=== PATIENT | female | born 1985 | race Caucasian/White ===

== ENCOUNTER 2016-02-09 18:29 | Emergency (ER) | payer OTHER ==
--- NOTE | 2016-02-09 20:08 | ED CLINICAL REPORT ---
Clinical Report - Physicians/Mid Levels Formerly [facility] [address] [place] [address] 02/09/2016 18:29 Patient: SACHIN VAZQUEZ Time Seen: 19:54; initial patient contact, initial documentation, patient care assumed. Arrived- By private vehicle. Historian- patient. HISTORY OF PRESENT ILLNESS Chief Complaint: COUGH, SORE THROAT, SINUS PAIN and FEVER. This started about 2 1/2 weeks ago and is still present. The illness is described as moderate. The patient has had a mild cough productive of sputum. She has had scant amounts of thin, clear, yellow sputum. No difficulty breathing, chest discomfort, hoarseness or ear pain. She has had a mild sore throat, nasal congestion, sinus pressure . Associated symptoms include sinus drainage, sinus drainage and fever. She has had mild, generalized muscle aches and a nasal discharge. Additional history - The patient has had contact with a sick friend. They have had similar symptoms. Similar symptoms previously: None. Recent medical care: Not recently seen/assessed. REVIEW OF SYSTEMS All systems otherwise negative, except as recorded above. PAST HISTORY See nurses notes. PROBLEMS: Dental Abscess. Substance Abuse. UTI - Urinary Tract Infection. Vaginitis. Ovarian Cyst. PID . Dental Pain. Immunizations. LNMP - Last Normal Menstrual Period. --18:56 Brian Lyons RVernell. ADDITIONAL SURGERIES: Adenoidectomy. . Tonsillectomy. --18:56 Brian Lyons RVernell. SOCIAL HISTORY Light tobacco smoker. Occasional alcohol use. Not exposed to second-hand smoke at home. No drug use. No recent travel. Is a local resident. FAMILY HISTORY Negative. ADDITIONAL NOTES The nursing notes have been reviewed with agreement regarding the chief complaint, HPI, ROS, PMH and patient medications and allergies. PHYSICAL EXAM Vital Signs: 02/09/2016 18:53 BP: 120/66. HR: 86. RR: 18. O2 saturation: 100%. Temp: 98.2 F. Pain level now: 02/17. Have been reviewed as normal and appear to be correct. Appearance: Alert. No acute distress. Head: Tenderness present to percussion/palpation of the sinuses: mild right and left maxillary tenderness. Eyes: Pupils equal, round and reactive to light. Eyes normal inspection. ENT: Ears normal. Nose abnormal. Pharynx normal. Uvula midline. Neck: Normal inspection. Neck supple. CVS: Normal heart rate and rhythm. Heart sounds normal. Pulses normal. Respiratory: No respiratory distress. Breath sounds normal. Back: Normal inspection. Skin: Skin warm and dry. Normal skin color. No rash. Normal skin turgor. Extremities: Extremities exhibit normal ROM. No lower extremity edema. Neuro: Oriented X 3. No motor deficit. No sensory deficit. PROGRESS AND PROCEDURES Patient counseled in person regarding the patient's stable condition and diagnosis. 20:07. Differential Diagnosis: Other possible considerations: flu, viral illness, sinusitis, bronchitis, pneumonia, allergies. Above considerations are based on history and physical exam. Differential diagnosis was discussed with patient. Disposition: Discharged home in good and unchanged condition (20:08). Condition: good and stable. CLINICAL IMPRESSION Acute maxillary sinusitis INSTRUCTIONS Do not work for two days. Drink plenty of fluids for the next 24 hours until better. Warnings: GENERAL WARNINGS: Return or contact your physician immediately if your condition worsens or changes unexpectedly, if not improving as expected, or if other problems arise. Specifically return if problem worsens. Prescription Medications: Nasacort nasal spray: 2 sprays in each nostril once daily as needed for allergies. Dispense one (1) unit. No refills. Substitution is permissible. Trimethoprim-Sulfamethoxazole DS: take 1 tablet orally every 12 hours for 10 days. No refill. Follow-up: Follow up with your doctor in about five days even if well. Call for an appointment. Summary of care provided to patient. Understanding of the discharge instructions verbalized by patient. (Electronically signed by Sweetie Stewart A.R.N.P. 02/09/2016 22:07)
--- NOTE | 2016-02-09 20:08 | ED NURSING NOTES ---
Clinical Report - Nurses [facility] [address] [place] [address] 02/09/2016 18:29 Patient: SACHIN VAZQUEZ TRIAGE Chief Complaint: COUGH, RUNNY NOSE, FEVER and SORE THROAT. Alert. No acute distress. SEPSIS SCREEN: Sepsis Screen. Negative (no infection suspected/documented). --18:58 Brian Lyons R.N. 18:53 02/09/16. BP: 120/66. HR: 86. RR: 18. O2 saturation: 100%. Temp: 98.2 F (oral). Pain level now: 02/17. --18:58 Brian Lyons R.N. Weight: 108.8 kg stated. Height/Length: 65 inches Per Patient. BMI: 40. --18:54 Brian Lyons R.N. Medications Mirena Intrauterine. --18:55 Brian Lyons R.N. Allergies Penicillin. --18:56 Brian Lyons R.N. History Arrived by private vehicle, and accompanied by family. Onset. (about 2.5 weeks ago). She has had a nasal discharge, chest congestion, chills and sinus pain. Reports muscle aches. 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 (afrin, cold medicines). PAST MEDICAL HX: The patient has had contact with a sick friend. Symptoms of the sick contact include fever, sore throat and cough. SOCIAL HX: Light tobacco smoker (cigarette)- less than 1/2 a pack per day. Occasional alcohol use. History of drug use. (no). She has not traveled outside the [place] FALL RISK ASSESSMENT: Fall risk assessment completed. No fall risk identified. NUTRITIONAL RISK ASSESSMENT: The nutritional risk assessment revealed no deficiencies. FUNCTIONAL ASSESSMENT: Functional assessment: no impairments noted. LEARNING NEEDS ASSESSMENT: The learning needs assessment revealed no barriers. SKIN INTEGRITY ASSESSMENT: Skin integrity risk assessment completed. No skin integrity risk identified. --18:58 Brian Lyons R.N. PROBLEMS: Dental Abscess. Substance Abuse. UTI - Urinary Tract Infection. Vaginitis. Ovarian Cyst. PID . Dental Pain. Immunizations. LNMP - Last Normal Menstrual Period. --18:56 Brian Lyons R.N. ADDITIONAL SURGERIES: Adenoidectomy. . Tonsillectomy. --18:56 Brian Lyons R.N. Interventions ID band on patient. --18:58 Brian Lyons R.N. PHYSICAL ASSESSMENT Ambulatory to room. GENERAL / NEURO / PSYCH: Alert. Oriented X 4. Appears in no acute distress. HEENT: Sinus tenderness present. Pupils equal, round and reactive to light. Ears within normal limits. Runny nose. Nares within normal limits. Mouth within normal limits upon inspection. Pharynx within normal limits. Voice within normal limits. Mucous membranes are pink. RESPIRATORY: Cough productive of moderate amounts of thick, green sputum. CVS: Normal sinus rhythm noted. Capillary refill less than 2 seconds. SKIN: Skin is warm and dry. Normal skin turgor. --18:59 Brian Lyons R.N. NURSING PROGRESS NOTES The initial plan of care for this patient has been created (work note). Head of bed elevated. Call light placed in reach. Side rails up x 1. Bed placed in lowest position. --19:15 Brian Lyons R.N. DISPOSITION / DISCHARGE Condition at departure: stable. No learning barriers present. Discharge instructions provided and reviewed with the patient. Reviewed medication(s) side effects, precautions, dosing and course information. Prescription(s) given to the patient. Work note given. Patient verbalized understanding. Written instructions provided in Danish. ( Drink plenty of fluids. Follow up with PCP in five days.). The patient was discharged by the nurse practitioner. She was discharged home and accompanied by shirt trimmer. She left the Emergency Department ambulatory and via private vehicle. Patient driving. --20:22 Danitza Gore 20:21 02/09/16. BP: 101/61. HR: 76. RR: 20. O2 saturation: 100% on room air. Temp: 98.6 F (oral). Pain level now: 0/10. --20:22 Danitza Gore. Locked/Released at 02/09/2016 21:29 by Danitza Gore,
--- NOTE | 2016-02-09 20:08 | ED NURSING NOTES ---
Clinical Report - Nurses [facility] [address] [place] [address] 02/09/2016 18:29 Patient: SACHIN VAZQUEZ TRIAGE Chief Complaint: COUGH, RUNNY NOSE, FEVER and SORE THROAT. Alert. No acute distress. SEPSIS SCREEN: Sepsis Screen. Negative (no infection suspected/documented). --18:58 Brian Lyons R.N. 18:53 02/09/16. BP: 120/66. HR: 86. RR: 18. O2 saturation: 100%. Temp: 98.2 F (oral). Pain level now: 02/17. --18:58 Brian Lyons R.N. Weight: 108.8 kg stated. Height/Length: 65 inches Per Patient. BMI: 40. --18:54 Brian Lyons R.N. Medications Mirena Intrauterine. --18:55 Brian Lyons R.N. Allergies Penicillin. --18:56 Brian Lyons R.N. History Arrived by private vehicle, and accompanied by family. Onset. (about 2.5 weeks ago). She has had a nasal discharge, chest congestion, chills and sinus pain. Reports muscle aches. 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 (afrin, cold medicines). PAST MEDICAL HX: The patient has had contact with a sick friend. Symptoms of the sick contact include fever, sore throat and cough. SOCIAL HX: Light tobacco smoker (cigarette)- less than 1/2 a pack per day. Occasional alcohol use. History of drug use. (no). She has not traveled outside the [place] FALL RISK ASSESSMENT: Fall risk assessment completed. No fall risk identified. NUTRITIONAL RISK ASSESSMENT: The nutritional risk assessment revealed no deficiencies. FUNCTIONAL ASSESSMENT: Functional assessment: no impairments noted. LEARNING NEEDS ASSESSMENT: The learning needs assessment revealed no barriers. SKIN INTEGRITY ASSESSMENT: Skin integrity risk assessment completed. No skin integrity risk identified. --18:58 Brian Lyons R.N. PROBLEMS: Dental Abscess. Substance Abuse. UTI - Urinary Tract Infection. Vaginitis. Ovarian Cyst. PID . Dental Pain. Immunizations. LNMP - Last Normal Menstrual Period. --18:56 Brian Lyons R.N. ADDITIONAL SURGERIES: Adenoidectomy. . Tonsillectomy. --18:56 Brian Lyons R.N. Interventions ID band on patient. --18:58 Brian Lyons R.N. PHYSICAL ASSESSMENT Ambulatory to room. GENERAL / NEURO / PSYCH: Alert. Oriented X 4. Appears in no acute distress. HEENT: Sinus tenderness present. Pupils equal, round and reactive to light. Ears within normal limits. Runny nose. Nares within normal limits. Mouth within normal limits upon inspection. Pharynx within normal limits. Voice within normal limits. Mucous membranes are pink. RESPIRATORY: Cough productive of moderate amounts of thick, green sputum. CVS: Normal sinus rhythm noted. Capillary refill less than 2 seconds. SKIN: Skin is warm and dry. Normal skin turgor. --18:59 Brian Lyons R.N. NURSING PROGRESS NOTES The initial plan of care for this patient has been created (work note). Head of bed elevated. Call light placed in reach. Side rails up x 1. Bed placed in lowest position. --19:15 Brian Lyons R.N. DISPOSITION / DISCHARGE Condition at departure: stable. No learning barriers present. Discharge instructions provided and reviewed with the patient. Reviewed medication(s) side effects, precautions, dosing and course information. Prescription(s) given to the patient. Work note given. Patient verbalized understanding. Written instructions provided in [place]. ( Drink plenty of fluids. Follow up with PCP in five days.). The patient was discharged by the nurse practitioner. She was discharged home and accompanied by cougar hunter. She left the Emergency Department ambulatory and via private vehicle. Patient driving. --20:22 Danitza Gore 20:21 02/09/16. BP: 101/61. HR: 76. RR: 20. O2 saturation: 100% on room air. Temp: 98.6 F (oral). Pain level now: 0/10. --20:22 Danitza Gore. Locked/Released at 02/09/2016 21:29 by Danitza Gore,
--- NOTE | 2016-02-09 22:08 | ED DISCHARGE INSTRUCTIONS ---
Patient: SACHIN VAZQUEZ General Instructions [facility] VisitID: [id number] [place] [address] 30y, F Registration Date/Time: 02/09/2016 Acute maxillary sinusitis INSTRUCTIONS Do not work for two days. Drink plenty of fluids for the next 24 hours until better. Warnings: GENERAL WARNINGS: Return or contact your physician immediately if your condition worsens or changes unexpectedly, if not improving as expected, or if other problems arise. Specifically return if problem worsens. Prescription Medications: Nasacort nasal spray: 2 sprays in each nostril once daily as needed for allergies. Dispense one (1) unit. No refills. Substitution is permissible. Trimethoprim-Sulfamethoxazole DS: take 1 tablet orally every 12 hours for 10 days. No refill. Follow-up: Follow up with your doctor in about five days even if well. Call for an appointment. Summary of care provided to patient. Understanding of the discharge instructions verbalized by patient. ADDITIONAL INFORMATION Sinusitis [Abx Tx] The sinuses are air-filled spaces within the bones of the face. They connect to the inside of the nose. Sinusitis is an inflammation of the tissue lining the sinus cavity. Sinus inflammation can occur during a cold or hay-fever (allergies to pollens and other particles in the air) and cause symptoms of sinus congestion and fullness. A sinus infection causes fever, headache and facial pain. There is usually green or yellow drainage from the nose or into the back of the throat (post-nasal drip). Antibiotics are prescribed to treat this condition. Home Care: Drink plenty of water, hot tea, and other liquids to stay well hydrated. This thins the mucus and promotes sinus drainage. Apply heat to the painful areas of the face. Use a towel soaked in hot water. Or, manufacturing maintenance manager the shower and direct the hot spray onto your face. This is a good way to inhale warm water vapor and get heat on your face at the same time. (Cover your mouth and nose with your hands so you can still breathe as you do this.) Use a vaporizer with products such as VicTonZof VapoRub (contains menthol) at night. Suck on peppermint, menthol or eucalyptus hard candies during the day. An expectorant containing guaifenesin (such as Robitussin), helps to thin the mucus and promote drainage from the sinuses. Gfti-jvn-qkuzvgc decongestants may be used unless a similar medicine was prescribed. Nasal sprays work the fastest. Use one that contains phenylephrine (Quincy-synephrine, Sinex and others) or oxymetazoline (Afrin). First blow the nose gently to remove mucus, then apply the drops. Do not use these medicines more often than directed on the label or for more than three days or symptoms may worsen. You may also use tablets containing pseudoephedrine (Sudafed). Many sinus remedies combine ingredients, which may increase side effects. Read the labels or ask the pharmacist for help. NOTE: Persons with high blood pressure should not use decongestants. They can raise blood pressure. Antihistamines are useful if allergies are a cause of your sinusitis. The mildest one is chlorpheniramine (available without a prescription). The dose for adults is 8-12mg three times a day. [NOTE: Do not use chlorpheniramine if you have glaucoma or if you are a man with trouble urinating due to an enlarged prostate.] Claritin (loratidine) is an antihistamine that causes less drowsiness and is a good alternative for daytime use. Do not use nasal rinses or irrigation during an acute sinus infection, unless advised by your doctor. Rinsing may spread the infection to other sinuses. You may use acetaminophen (Tylenol) or ibuprofen (Motrin, Advil) to control pain, unless another pain medicine was prescribed. [ NOTE: If you have chronic liver or kidney disease or ever had a stomach ulcer, talk with your doctor before using these medicines.] (Aspirin should never be used in anyone under 18 years of age who is ill with a fever. It may cause severe liver damage.) Finish the full course, even if you are feeling better after a few days. Follow Up with your doctor or this facility in one week or as instructed by our staff if not improving. Get Prompt Medical Attention if any of the following occur: Facial pain or headache becomes more severe Stiff neck Unusual drowsiness or confusion, or not acting like your normal self Swelling of the forehead or eyelids Vision problems including blurred or double vision Fever of 100.4F (38C) or higher, or as directed by your healthcare provider Seizure Triamcinolone Acetonide Nasal spray What is this medicine? TRIAMCINOLONE (trye am SIN oh lone) nasal spray is a corticosteroid. It is used to treat the nasal symptoms of seasonal and year round allergies. How should I use this medicine? This medicine is for use in the nose. Follow the directions on your prescription label. This medicine works best if used regularly. Do not use more often than directed. Make sure that you are using your nasal spray correctly. Ask you doctor or health care provider if you have any questions. Talk to your stewardess supervisor regarding the use of this medicine in children. While this drug may be prescribed for children as young as 2 years of age for selected conditions, precautions do apply. What side effects may I notice from receiving this medicine? Side effects that you should report to your doctor or health manager medicare as soon as possible: allergic reactions like skin rash, itching or hives, swelling of the face, lips, or tongue change in vision dizziness infection nosebleed, burning in the nose trouble breathing, wheezing unusual bruising white patches or sores in the nose Side effects that usually do not require medical attention (report to your doctor or health manager medicare if they continue or are bothersome): congestion cough headache nausea runny nose sneezing What may interact with this medicine? Interactions are not expected. What if I miss a dose? If you miss a dose, take it as soon as you can. If it is almost time for your next dose, take only that dose. Do not take double or extra doses. Where should I keep my medicine? Keep out of the reach of children. Store at room temperature between 20 and 25 degrees C (68 and 77 degrees F). Throw away the canister after 120 sprays or after the expiration date, whichever comes first. What should I tell my health care provider before I take this medicine? They need to know if you have any of these conditions: infection, like tuberculosis, herpes, or fungal infection recent surgery or injury of nose or sinuses taking corticosteroids by mouth an unusual or allergic reaction to triamcinolone, corticosteroids, other medicines, foods, dyes, or preservatives or trying to get breast-feeding What should I watch for while using this medicine? Check with your doctor or health manager medicare if your symptoms do not improve in 1 week of regular use or if they get worse. Do not come in contact with people who have chickenpox or the measles while you are taking this medicine. If you do, call your doctor right away. Sulfamethoxazole, Trimethoprim Oral tablet What is this medicine? SULFAMETHOXAZOLE; TRIMETHOPRIM or SMX-TMP (suhl fuh meth OK poonam zohl; trye METH oh prim) is a combination of a sulfonamide antibiotic and a second antibiotic, trimethoprim. It is used to treat or prevent certain kinds of bacterial infections. It will not work for colds, flu, or other viral infections. How should I use this medicine? Take this medicine by mouth with a full glass of water. Follow the directions on the prescription label. Take your medicine at regular intervals. Do not take it more often than directed. Do not skip doses or stop your medicine early. Talk to your stewardess supervisor regarding the use of this medicine in children. Special care may be needed. This medicine has been used in children as young as 2 months of age. What side effects may I notice from receiving this medicine? Side effects that you should report to your doctor or health manager medicare as soon as possible: allergic reactions like skin rash or hives, swelling of the face, lips, or tongue breathing problems fever or chills, sore throat irregular heartbeat, chest pain joint or muscle pain pain or difficulty passing urine red pinpoint spots on skin redness, blistering, peeling or loosening of the skin, including inside the mouth unusual bleeding or bruising unusually weak or tired yellowing of the eyes or skin Side effects that usually do not require medical attention (report to your doctor or health manager medicare if they continue or are bothersome): diarrhea dizziness headache loss of appetite nausea, vomiting nervousness What may interact with this medicine? Do not take this medicine with any of the following medications: aminobenzoate potassium dofetilide metronidazole This medicine may also interact with the following medications: CHRISTIAN inhibitors like benazepril, enalapril, lisinopril, and ramipril cyclosporine digoxin diuretics indomethacin medicines for diabetes methenamine methotrexate phenytoin potassium supplements pyrimethamine sulfinpyrazone tricyclic antidepressants warfarin What if I miss a dose? If you miss a dose, take it as soon as you can. If it is almost time for your next dose, take only that dose. Do not take double or extra doses. Where should I keep my medicine? Keep out of the reach of children. Store at room temperature between 20 to 25 degrees C (68 to 77 degrees F). Protect from light. Throw away any unused medicine after the expiration date. What should I tell my health care provider before I take this medicine? They need to know if you have any of these conditions: anemia asthma being treated with anticonvulsants if you frequently drink alcohol containing drinks kidney disease liver disease low level of folic acid or [id number] dehydrogenase poor nutrition or malabsorption porphyria severe allergies thyroid disorder an unusual or allergic reaction to sulfamethoxazole, trimethoprim, sulfa drugs, other medicines, foods, dyes, or preservatives or trying to get breast-feeding What should I watch for while using this medicine? Tell your doctor or health manager medicare if your symptoms do not improve. Drink several glasses of water a day to reduce the risk of kidney problems. Do not treat diarrhea with over the counter products. Contact your doctor if you have diarrhea that lasts more than 2 days or if it is severe and watery. This medicine can make you more sensitive to the sun. Keep out of the sun. If you cannot avoid being in the sun, wear protective clothing and use a sunscreen. Do not use sun lamps or tanning beds/booths. You have been given the following additional information: Sinusitis, Abx Tx Triamcinolone Acetonide Nasal spray Sulfamethoxazole, Trimethoprim Oral tablet Do not work for two days. (Electronically signed by Sweetie Stewart A.R.N.P. 02/09/2016 22:07)
--- NOTE | 2016-02-09 22:08 | ED MAR SUMMARY ---
..... Medication Administration Record [facility] [address] [place], [place] [id number] Patient: SACHIN VAZQUEZ Visit ID: [id number] 30y, F Weight: 108.8 kg Height/Length: 65 in BMI: 40 ALLERGIES: Penicillin
--- NOTE | 2016-02-09 22:08 | ED MED RECONCILIATION SUMMARY ---
Patient: SACHIN VAZQUEZ Medication Reconciliation Report [facility] VisitID: [id number] [place] [address] 30y, F Registration Date/Time: 02/09/2016 Weight: 108.8 kg Height/Length: 65 in. BMI: 40.0 ALLERGIES: Penicillin The patient's Home Medications are listed below: THE FOLLOWING MEDICATIONS NEED TO BE RECONCILED: Mirena Intrauterine The source(s) of the original Home Medication information: Not obtained. The following Medications were given to the patient in the Emergency Department: None. The following Medications were prescribed to the patient: Nasacort nasal spray: 2 sprays in each nostril once daily as needed for allergies. Dispense one (1) unit. No refills. Substitution is permissible. -- Sweetie Stewart A.R.N.P. Trimethoprim-Sulfamethoxazole DS: take 1 tablet orally every 12 hours for 10 days. No refill. -- Sweetie Stewart A.R.N.P.
--- NOTE | 2016-02-09 22:08 | ED DISCHARGE INSTRUCTIONS ---
Patient: SACHIN VAZQUEZ General Instructions VisitID: [id number] [place] [address] 30y, F Registration Date/Time: 02/09/2016 Acute maxillary sinusitis INSTRUCTIONS Do not work for two days. Drink plenty of fluids for the next 24 hours until better. Warnings: GENERAL WARNINGS: Return or contact your physician immediately if your condition worsens or changes unexpectedly, if not improving as expected, or if other problems arise. Specifically return if problem worsens. Prescription Medications: Nasacort nasal spray: 2 sprays in each nostril once daily as needed for allergies. Dispense one (1) unit. No refills. Substitution is permissible. Trimethoprim-Sulfamethoxazole DS: take 1 tablet orally every 12 hours for 10 days. No refill. Follow-up: Follow up with your doctor in about five days even if well. Call for an appointment. Summary of care provided to patient. Understanding of the discharge instructions verbalized by patient. ADDITIONAL INFORMATION Sinusitis [Abx Tx] The sinuses are air-filled spaces within the bones of the face. They connect to the inside of the nose. Sinusitis is an inflammation of the tissue lining the sinus cavity. Sinus inflammation can occur during a cold or hay-fever (allergies to pollens and other particles in the air) and cause symptoms of sinus congestion and fullness. A sinus infection causes fever, headache and facial pain. There is usually green or yellow drainage from the nose or into the back of the throat (post-nasal drip). Antibiotics are prescribed to treat this condition. Home Care: Drink plenty of water, hot tea, and other liquids to stay well hydrated. This thins the mucus and promotes sinus drainage. Apply heat to the painful areas of the face. Use a towel soaked in hot water. Or, marine insurance claim examiner the shower and direct the hot spray onto your face. This is a good way to inhale warm water vapor and get heat on your face at the same time. (Cover your mouth and nose with your hands so you can still breathe as you do this.) Use a vaporizer with products such as VicKumbuya VapoRub (contains menthol) at night. Suck on peppermint, menthol or eucalyptus hard candies during the day. An expectorant containing guaifenesin (such as Robitussin), helps to thin the mucus and promote drainage from the sinuses. Rfwy-iyh-hmwfqmz decongestants may be used unless a similar medicine was prescribed. Nasal sprays work the fastest. Use one that contains phenylephrine (Quincy-synephrine, Sinex and others) or oxymetazoline (Afrin). First blow the nose gently to remove mucus, then apply the drops. Do not use these medicines more often than directed on the label or for more than three days or symptoms may worsen. You may also use tablets containing pseudoephedrine (Sudafed). Many sinus remedies combine ingredients, which may increase side effects. Read the labels or ask the pharmacist for help. NOTE: Persons with high blood pressure should not use decongestants. They can raise blood pressure. Antihistamines are useful if allergies are a cause of your sinusitis. The mildest one is chlorpheniramine (available without a prescription). The dose for adults is 8-12mg three times a day. [NOTE: Do not use chlorpheniramine if you have glaucoma or if you are a man with trouble urinating due to an enlarged prostate.] Claritin (loratidine) is an antihistamine that causes less drowsiness and is a good alternative for daytime use. Do not use nasal rinses or irrigation during an acute sinus infection, unless advised by your doctor. Rinsing may spread the infection to other sinuses. You may use acetaminophen (Tylenol) or ibuprofen (Motrin, Advil) to control pain, unless another pain medicine was prescribed. [ NOTE: If you have chronic liver or kidney disease or ever had a stomach ulcer, talk with your doctor before using these medicines.] (Aspirin should never be used in anyone under 18 years of age who is ill with a fever. It may cause severe liver damage.) Finish the full course, even if you are feeling better after a few days. Follow Up with your doctor or this facility in one week or as instructed by our staff if not improving. Get Prompt Medical Attention if any of the following occur: Facial pain or headache becomes more severe Stiff neck Unusual drowsiness or confusion, or not acting like your normal self Swelling of the forehead or eyelids Vision problems including blurred or double vision Fever of 100.4F (38C) or higher, or as directed by your healthcare provider Seizure Triamcinolone Acetonide Nasal spray What is this medicine? TRIAMCINOLONE (trye am SIN oh lone) nasal spray is a corticosteroid. It is used to treat the nasal symptoms of seasonal and year round allergies. How should I use this medicine? This medicine is for use in the nose. Follow the directions on your prescription label. This medicine works best if used regularly. Do not use more often than directed. Make sure that you are using your nasal spray correctly. Ask you doctor or health care provider if you have any questions. Talk to your dining car conductor regarding the use of this medicine in children. While this drug may be prescribed for children as young as 2 years of age for selected conditions, precautions do apply. What side effects may I notice from receiving this medicine? Side effects that you should report to your doctor or health healthcare administrator as soon as possible: allergic reactions like skin rash, itching or hives, swelling of the face, lips, or tongue change in vision dizziness infection nosebleed, burning in the nose trouble breathing, wheezing unusual bruising white patches or sores in the nose Side effects that usually do not require medical attention (report to your doctor or health healthcare administrator if they continue or are bothersome): congestion cough headache nausea runny nose sneezing What may interact with this medicine? Interactions are not expected. What if I miss a dose? If you miss a dose, take it as soon as you can. If it is almost time for your next dose, take only that dose. Do not take double or extra doses. Where should I keep my medicine? Keep out of the reach of children. Store at room temperature between 20 and 25 degrees C (68 and 77 degrees F). Throw away the canister after 120 sprays or after the expiration date, whichever comes first. What should I tell my health care provider before I take this medicine? They need to know if you have any of these conditions: infection, like tuberculosis, herpes, or fungal infection recent surgery or injury of nose or sinuses taking corticosteroids by mouth an unusual or allergic reaction to triamcinolone, corticosteroids, other medicines, foods, dyes, or preservatives or trying to get breast-feeding What should I watch for while using this medicine? Check with your doctor or health healthcare administrator if your symptoms do not improve in 1 week of regular use or if they get worse. Do not come in contact with people who have chickenpox or the measles while you are taking this medicine. If you do, call your doctor right away. Sulfamethoxazole, Trimethoprim Oral tablet What is this medicine? SULFAMETHOXAZOLE; TRIMETHOPRIM or SMX-TMP (suhl fuh meth OK poonam zohl; trye METH oh prim) is a combination of a sulfonamide antibiotic and a second antibiotic, trimethoprim. It is used to treat or prevent certain kinds of bacterial infections. It will not work for colds, flu, or other viral infections. How should I use this medicine? Take this medicine by mouth with a full glass of water. Follow the directions on the prescription label. Take your medicine at regular intervals. Do not take it more often than directed. Do not skip doses or stop your medicine early. Talk to your dining car conductor regarding the use of this medicine in children. Special care may be needed. This medicine has been used in children as young as 2 months of age. What side effects may I notice from receiving this medicine? Side effects that you should report to your doctor or health healthcare administrator as soon as possible: allergic reactions like skin rash or hives, swelling of the face, lips, or tongue breathing problems fever or chills, sore throat irregular heartbeat, chest pain joint or muscle pain pain or difficulty passing urine red pinpoint spots on skin redness, blistering, peeling or loosening of the skin, including inside the mouth unusual bleeding or bruising unusually weak or tired yellowing of the eyes or skin Side effects that usually do not require medical attention (report to your doctor or health healthcare administrator if they continue or are bothersome): diarrhea dizziness headache loss of appetite nausea, vomiting nervousness What may interact with this medicine? Do not take this medicine with any of the following medications: aminobenzoate potassium dofetilide metronidazole This medicine may also interact with the following medications: CHRISTIAN inhibitors like benazepril, enalapril, lisinopril, and ramipril cyclosporine digoxin diuretics indomethacin medicines for diabetes methenamine methotrexate phenytoin potassium supplements pyrimethamine sulfinpyrazone tricyclic antidepressants warfarin What if I miss a dose? If you miss a dose, take it as soon as you can. If it is almost time for your next dose, take only that dose. Do not take double or extra doses. Where should I keep my medicine? Keep out of the reach of children. Store at room temperature between 20 to 25 degrees C (68 to 77 degrees F). Protect from light. Throw away any unused medicine after the expiration date. What should I tell my health care provider before I take this medicine? They need to know if you have any of these conditions: anemia asthma being treated with anticonvulsants if you frequently drink alcohol containing drinks kidney disease liver disease low level of folic acid or qevvkli-[id number]-mjvhsulax dehydrogenase poor nutrition or malabsorption porphyria severe allergies thyroid disorder an unusual or allergic reaction to sulfamethoxazole, trimethoprim, sulfa drugs, other medicines, foods, dyes, or preservatives or trying to get breast-feeding What should I watch for while using this medicine? Tell your doctor or health healthcare administrator if your symptoms do not improve. Drink several glasses of water a day to reduce the risk of kidney problems. Do not treat diarrhea with over the counter products. Contact your doctor if you have diarrhea that lasts more than 2 days or if it is severe and watery. This medicine can make you more sensitive to the sun. Keep out of the sun. If you cannot avoid being in the sun, wear protective clothing and use a sunscreen. Do not use sun lamps or tanning beds/booths. You have been given the following additional information: Sinusitis, Abx Tx Triamcinolone Acetonide Nasal spray Sulfamethoxazole, Trimethoprim Oral tablet Do not work for two days. (Electronically signed by Sweetie Stewart A.R.N.P. 02/09/2016 22:07)
--- NOTE | 2016-02-09 22:08 | ED MAR SUMMARY ---
..... Medication Administration Record [facility] [address] [place], [place] [id number] Patient: SACHIN VAZQUEZ Visit ID: [id number] 30y, F Weight: 108.8 kg Height/Length: 65 in BMI: 40 ALLERGIES: Penicillin
--- NOTE | 2016-02-09 22:08 | ED MED RECONCILIATION SUMMARY ---
Patient: SACHIN VAZQUEZ Medication Reconciliation Report [facility] VisitID: [id number] [place] [address] 30y, F Registration Date/Time: 02/09/2016 Weight: 108.8 kg Height/Length: 65 in. BMI: 40.0 ALLERGIES: Penicillin The patient's Home Medications are listed below: THE FOLLOWING MEDICATIONS NEED TO BE RECONCILED: Mirena Intrauterine The source(s) of the original Home Medication information: Not obtained. The following Medications were given to the patient in the Emergency Department: None. The following Medications were prescribed to the patient: Nasacort nasal spray: 2 sprays in each nostril once daily as needed for allergies. Dispense one (1) unit. No refills. Substitution is permissible. -- Sweetie Stewart A.R.N.P. Trimethoprim-Sulfamethoxazole DS: take 1 tablet orally every 12 hours for 10 days. No refill. -- Sweetie Stewart A.R.N.P.
== END 2016-02-09 20:10 | disposition home or self-care (01) ==
LOC: ED SRH 18:29
DX: J01.00 Acute maxillary sinusitis, unspecified (principal); F17.210 Nicotine dependence, cigarettes, uncomplicated; Z88.0 Allergy status to penicillin

== ENCOUNTER 2016-03-01 13:04 | Emergency (ER) | payer OTHER ==
--- NOTE | 2016-03-01 13:25 | ED NURSING NOTES ---
Clinical Report - Nurses [facility] [address] [place] [address] 03/01/2016 13:05 Patient: SACHIN VAZQUEZ TRIAGE Triage time 13:Mar 01 2016. Acuity: LEVEL 5. Chief Complaint: SWELLING OF JAW / FACE. TIERRA COMA SCORE: [place] Scale: 15- eyes open spontaneously (4); best verbal response- oriented x 4 (5); best motor response- obeys commands (6). --13:25 Janessa Trejo R.N. 13:20 03/01/16. BP: 133/73. HR: 80. RR: 18. O2 saturation: 99%. Temp: 98.7 F. Pain level now 5/10. --13:25 Janessa Trejo R.N. Weight: 108.8 kg stated. Height/Length: 65 inches Per Patient. BMI: 40. --13:23 Janessa Trejo R.N. Medications Mirena Intrauterine. --13:21 Janessa Trejo R.N. Allergies Penicillin. --13:21 Janessa Trejo R.N. History Arrived by private vehicle. Historian: patient. Accompanied by family. This started yesterday. She has no dental appointment scheduled. No fever, hoarseness, mouth sores, ear pain or sinus pain. No enlarged lymph nodes or facial pain. She has had a toothache and swelling of the jaw. 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 PAST MEDICAL HX: Dental caries. Immunizations: up-to-date. SOCIAL HX: Light tobacco smoker (cigarette)- less than 1/2 a pack per day. Occasional alcohol use; consumes beer weekly. No drug use. ABUSE ASSESSMENT: Abuse history: reports abuse. Abuse assessment: (yes). SELF HARM ASSESSMENT: A self harm assessment was performed. The patient answered "no" to the question "Have you recently felt down, depressed, or hopeless?" and "Do you have thoughts of harming or killing yourself?". FALL RISK ASSESSMENT: Fall risk assessment completed. No fall risk identified. NUTRITIONAL RISK ASSESSMENT: The nutritional risk assessment revealed no deficiencies. FUNCTIONAL ASSESSMENT: Functional assessment: no impairments noted. LEARNING NEEDS ASSESSMENT: The learning needs assessment revealed no barriers. SKIN INTEGRITY ASSESSMENT: Skin integrity risk assessment completed. No skin integrity risk identified. --13: Janessa Trejo R.N. PROBLEMS: Sinusitis. Sick Contact. Dental Abscess. Substance Abuse. UTI - Urinary Tract Infection. Vaginitis. Ovarian Cyst. PID . Dental Pain. Immunizations. LNMP - Last Normal Menstrual Period. --13: Janessa Trejo R.N. TMJ Syndrome [RuleOut]. --13: Janessa Trejo R.N. ADDITIONAL SURGERIES: Adenoidectomy. . Tonsillectomy. --: Janessa Trejo R.N. Interventions ID band on patient. --13: Janessa Trejo R.N. PHYSICAL ASSESSMENT Ambulatory to room. GENERAL / NEURO / PSYCH: Alert. Oriented X 4. Appears in no acute distress. HEENT: Pupils equal, round and reactive to light. Pharynx within normal limits. Voice within normal limits. Dental tenderness. Dental decay. Mucous membranes are pink. RESPIRATORY: Respirations not labored. CVS: Capillary refill less than 2 seconds. SKIN: Skin is warm and dry. Normal skin turgor. --: Janessa Trejo R.N. NURSING PROGRESS NOTES The initial plan of care for this patient has been created. Reassurance given. --13: Janessa Trejo R.N. 13:03/01/2016 Clindamycin PO Tablets 300 mg given. Allergies verified and confirmed 5 rights. --13:33 Janessa Trejo R.N. DISPOSITION / DISCHARGE Departure time: :Mar 01 2016. Condition at departure: improved. No learning barriers present. Discharge instructions provided and reviewed with the patient. Reviewed warnings. Reviewed medication(s). Treatments reviewed. Reviewed referrals. Work note given. Patient verbalized understanding. Written instructions provided in Greek. The patient was discharged home and accompanied by family. She left the Emergency Department ambulatory and via private vehicle. Family member driving. --13: Janessa Trejo R.N. 13:20 03/01/16. BP: 133/73. HR: 80. RR: 18. O2 saturation: 99%. Temp: 98.7 F. Pain level now 06/17. --13:33 Janessa Trejo R.N. Locked/Released at 03/01/2016 19:10 by Janessa Trejo R.N.
--- NOTE | 2016-03-01 13:25 | ED ORDER SUMMARY ---
..... Patient: SACHIN VAZQUEZ OrderSheet [facility] VisitID: [id number] [address] [place] [address] 31y, F Registration Date/Time: 03/01/2016 ORDER SHEET Weight: 108.8 kg (stated) Allergies: Penicillin GENERAL ORDERS: MEDICATION ORDERS: Clindamycin PO 300 mg (NOW) (13:22 03/01/2016 Donta Sosa) (13:33 Claire Cardona) IV FLUIDS: ORDER SHEET NOTES: [Electronically signed by Kim Figueroa P.A.-C (13:44 03/01/2016)] [Electronically signed by Janessa Trejo R.N. (19:10 03/01/2016)] [Electronically locked/signed by Janessa Trejo R.N. (19:10 03/01/2016)]
--- NOTE | 2016-03-01 13:25 | ED CLINICAL REPORT ---
Clinical Report - Physicians/Mid Levels [facility] [address] [place] [address] 03/01/2016 13:05 Patient: SACHIN VAZQUEZ Time Seen: 13:16 Mar 01 2016. Arrived- By private vehicle. Historian- patient. HISTORY OF PRESENT ILLNESS Chief Complaint: DENTAL PAIN. This started just prior to arrival and is still present. Pain described as mild. (31-year-old female with left dental pain over the last 2 days. Reports no fevers or chills. Denies any facial swelling. Reports history of previous problems to the left area, has had prior root canal to the area. Awaiting tooth extraction. Patient denies any nausea or vomiting, sore throat, denies any ear pain. Has been taking Motrin [id number]. Reports pain worse with cold and hot therapy to the area, Of the tooth.). REVIEW OF SYSTEMS No cough or difficulty breathing. All systems otherwise negative, except as recorded above. ADDITIONAL NOTES The nursing notes have been reviewed. PHYSICAL EXAM Vital Signs: 03/01/2016 13:20 BP: 133/73. HR: 80. RR: 18. O2 saturation: 99%. Temp: 98.7 F. Appearance: Alert. Head: Normal external inspection. Eyes: Pupils equal, round and reactive to light. Conjunctivae and eyelids normal. ENT: Pharynx normal. Uvula midline. (Decay of the left premolar teeth on the left aspect to the gumline with surrounding erythema, no trismus utilizing midline, no external facial swelling.). Neck: Trachea midline. No adenopathy. CVS: Normal heart rate and rhythm. Heart sounds normal. Respiratory: No respiratory distress. Breath sounds normal. Skin: Normal skin color. Neuro: Oriented X 3. PROGRESS AND PROCEDURES Course of Care: Patient with no signs of Vinh's angina, uvula is midline no facial swelling, tolerating her own secretions and by mouth well. No change in voice. Patient to follow up outpatient with a dentist. Patient is stable. Physical exam findings are improved. Symptoms better. Patient/family counseled. Disposition: Discharged. CLINICAL IMPRESSION Moderate dental pain. INSTRUCTIONS Do not work today (Here in ER Due to medical reasons on 03/01/2016, may have had medical concerns on 02/28 for which she may have missed work). Drink plenty of fluids. Prescription Medications: Cleocin 150 mg: take 1 capsule orally every 8 hours for 10 days. No refill. Substitution is permissible. Follow-up: Follow up with a specialist. (Electronically signed by Kim Figueroa P.A.-C 03/01/2016 13:44)
--- NOTE | 2016-03-01 13:25 | ED NURSING NOTES ---
Clinical Report - Nurses [facility] [address] [place] [address] 03/01/2016 13:05 Patient: SACHIN VAZQUEZ TRIAGE Triage time 13:Mar 01 2016. Acuity: LEVEL 5. Chief Complaint: SWELLING OF JAW / FACE. TIERRA COMA SCORE: [place] Com[place] Scale: 15- eyes open spontaneously (4); best verbal response- oriented x 4 (5); best motor response- obeys commands (6). --13:25 Janessa Trejo R.N. 13:20 03/01/16. BP: 133/73. HR: 80. RR: 18. O2 saturation: 99%. Temp: 98.7 F. Pain level now 5/10. --13:25 Janessa Trejo R.N. Weight: 108.8 kg stated. Height/Length: 65 inches Per Patient. BMI: 40. --13:23 Janessa Trejo R.N. Medications Mirena Intrauterine. --13:21 Janessa Trejo R.N. Allergies Penicillin. --13:21 Janessa Trejo R.N. History Arrived by private vehicle. Historian: patient. Accompanied by family. This started yesterday. She has no dental appointment scheduled. No fever, hoarseness, mouth sores, ear pain or sinus pain. No enlarged lymph nodes or facial pain. She has had a toothache and swelling of the jaw. 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 PAST MEDICAL HX: Dental caries. Immunizations: up-to-date. SOCIAL HX: Light tobacco smoker (cigarette)- less than 1/2 a pack per day. Occasional alcohol use; consumes beer weekly. No drug use. ABUSE ASSESSMENT: Abuse history: reports abuse. Abuse assessment: (yes). SELF HARM ASSESSMENT: A self harm assessment was performed. The patient answered "no" to the question "Have you recently felt down, depressed, or hopeless?" and "Do you have thoughts of harming or killing yourself?". FALL RISK ASSESSMENT: Fall risk assessment completed. No fall risk identified. NUTRITIONAL RISK ASSESSMENT: The nutritional risk assessment revealed no deficiencies. FUNCTIONAL ASSESSMENT: Functional assessment: no impairments noted. LEARNING NEEDS ASSESSMENT: The learning needs assessment revealed no barriers. SKIN INTEGRITY ASSESSMENT: Skin integrity risk assessment completed. No skin integrity risk identified. --13: Janessa Trejo R.N. PROBLEMS: Sinusitis. Sick Contact. Dental Abscess. Substance Abuse. UTI - Urinary Tract Infection. Vaginitis. Ovarian Cyst. PID . Dental Pain. Immunizations. LNMP - Last Normal Menstrual Period. --13: Janessa Trejo R.N. TMJ Syndrome [RuleOut]. --13: Janessa Trejo R.N. ADDITIONAL SURGERIES: Adenoidectomy. . Tonsillectomy. --: Janessa Trejo R.N. Interventions ID band on patient. --13: Janessa Trejo R.N. PHYSICAL ASSESSMENT Ambulatory to room. GENERAL / NEURO / PSYCH: Alert. Oriented X 4. Appears in no acute distress. HEENT: Pupils equal, round and reactive to light. Pharynx within normal limits. Voice within normal limits. Dental tenderness. Dental decay. Mucous membranes are pink. RESPIRATORY: Respirations not labored. CVS: Capillary refill less than 2 seconds. SKIN: Skin is warm and dry. Normal skin turgor. --: Janessa Trejo R.N. NURSING PROGRESS NOTES The initial plan of care for this patient has been created. Reassurance given. --13: Janessa Trejo R.N. 13:03/01/2016 Clindamycin PO Tablets 300 mg given. Allergies verified and confirmed 5 rights. --13:33 Janessa Trejo R.N. DISPOSITION / DISCHARGE Departure time: :Mar 01 2016. Condition at departure: improved. No learning barriers present. Discharge instructions provided and reviewed with the patient. Reviewed warnings. Reviewed medication(s). Treatments reviewed. Reviewed referrals. Work note given. Patient verbalized understanding. Written instructions provided in Tongan. The patient was discharged home and accompanied by family. She left the Emergency Department ambulatory and via private vehicle. Family member driving. --13: Janessa Trejo R.N. 13:20 03/01/16. BP: 133/73. HR: 80. RR: 18. O2 saturation: 99%. Temp: 98.7 F. Pain level now 06/17. --13:33 Janessa Trejo R.N. Locked/Released at 03/01/2016 19:10 by Janessa Trejo R.N.
--- NOTE | 2016-03-01 13:25 | ED ORDER SUMMARY ---
..... Patient: SACHIN VAZQUEZ OrderSheet [facility] VisitID: [id number] [address] [place] [address] 31y, F Registration Date/Time: 03/01/2016 ORDER SHEET Weight: 108.8 kg (stated) Allergies: Penicillin GENERAL ORDERS: MEDICATION ORDERS: Clindamycin PO 300 mg (NOW) (13:22 03/01/2016 Donta Sosa) (13:33 Claire Cardona) IV FLUIDS: ORDER SHEET NOTES: [Electronically signed by Kim Figueroa P.A.-C (13:44 03/01/2016)] [Electronically signed by Janessa Trejo R.N. (19:10 03/01/2016)] [Electronically locked/signed by Janessa Trejo R.N. (19:10 03/01/2016)]
--- NOTE | 2016-03-01 13:25 | ED CLINICAL REPORT ---
Clinical Report - Physicians/Mid Levels [facility] [address] [place] [address] 03/01/2016 13:05 Patient: SACHIN VAZQUEZ Time Seen: 13:16 Mar 01 2016. Arrived- By private vehicle. Historian- patient. HISTORY OF PRESENT ILLNESS Chief Complaint: DENTAL PAIN. This started just prior to arrival and is still present. Pain described as mild. (31-year-old female with left dental pain over the last 2 days. Reports no fevers or chills. Denies any facial swelling. Reports history of previous problems to the left area, has had prior root canal to the area. Awaiting tooth extraction. Patient denies any nausea or vomiting, sore throat, denies any ear pain. Has been taking Motrin [id number]. Reports pain worse with cold and hot therapy to the area, Of the tooth.). REVIEW OF SYSTEMS No cough or difficulty breathing. All systems otherwise negative, except as recorded above. ADDITIONAL NOTES The nursing notes have been reviewed. PHYSICAL EXAM Vital Signs: 03/01/2016 13:20 BP: 133/73. HR: 80. RR: 18. O2 saturation: 99%. Temp: 98.7 F. Appearance: Alert. Head: Normal external inspection. Eyes: Pupils equal, round and reactive to light. Conjunctivae and eyelids normal. ENT: Pharynx normal. Uvula midline. (Decay of the left premolar teeth on the left aspect to the gumline with surrounding erythema, no trismus utilizing midline, no external facial swelling.). Neck: Trachea midline. No adenopathy. CVS: Normal heart rate and rhythm. Heart sounds normal. Respiratory: No respiratory distress. Breath sounds normal. Skin: Normal skin color. Neuro: Oriented X 3. PROGRESS AND PROCEDURES Course of Care: Patient with no signs of Vinh's angina, uvula is midline no facial swelling, tolerating her own secretions and by mouth well. No change in voice. Patient to follow up outpatient with a dentist. Patient is stable. Physical exam findings are improved. Symptoms better. Patient/family counseled. Disposition: Discharged. CLINICAL IMPRESSION Moderate dental pain. INSTRUCTIONS Do not work today (Here in ER Due to medical reasons on 03/01/2016, may have had medical concerns on 02/28 for which she may have missed work). Drink plenty of fluids. Prescription Medications: Cleocin 150 mg: take 1 capsule orally every 8 hours for 10 days. No refill. Substitution is permissible. Follow-up: Follow up with a specialist. (Electronically signed by Kim Figueroa P.A.-C 03/01/2016 13:44)
--- NOTE | 2016-03-01 19:10 | ED DISCHARGE INSTRUCTIONS ---
Patient: SACHIN VAZQUZE General Instructions [facility] VisitID: [id number] [place] [address] 31y, F Registration Date/Time: 03/01/2016 Moderate dental pain. INSTRUCTIONS Do not work today (Here in ER Due to medical reasons on 03/01/2016, may have had medical concerns on 02/28 for which she may have missed work). Drink plenty of fluids. Prescription Medications: Cleocin 150 mg: take 1 capsule orally every 8 hours for 10 days. No refill. Substitution is permissible. Follow-up: Follow up with a specialist. ADDITIONAL INFORMATION Dental Pain A crack or cavity in the tooth, which exposes the sensitive inner area of the tooth can cause tooth pain. An infection in the gum or the root of the tooth can cause pain and swelling. The pain is often made worse by drinking hot or cold fluids, or biting on hard foods. Pain may spread from the tooth to the ear or jaw on the same side. Home Care: Avoid hot and cold foods and liquids since your tooth may be sensitive to temperature changes. If your tooth is chipped or cracked, or if there is a large open cavity, apply OIL OF CLOVES (available oovl-uzn-bgmisie in drug stores) directly to the tooth to reduce pain. Some pharmacies carry an orbb-zqc-zmqndmp "toothache kit." This contains a paste, which can be applied over the exposed tooth to decrease sensitivity. A cold pack on your jaw over the sore area may help reduce pain. You may use acetaminophen (Tylenol) or ibuprofen (Motrin, Advil) to control pain, unless another medicine was prescribed. [ NOTE: If you have chronic liver or kidney disease or ever had a stomach ulcer or GI bleeding, talk with your doctor before using these medicines.] If you have signs of an infection, an antibiotic will be given. Take it as directed. Follow-Up as directed with a dentist. Your pain may go away with the treatment given. However, only a dentist can fully evaluate and treat the cause and prevent the pain from coming back again. TOOTHACHE IS A SIGN OF DISEASE IN YOUR TOOTH AND SHOULD BE EXAMINED AND TREATED BY A DENTIST. Get Prompt Medical Attention if any of the following occur: Your face becomes swollen or red Pain worsens or spreads to the neck Fever over 100.4 F (38.0 C) Unusual drowsiness; headache or stiff neck; weakness or fainting Pus drains from the tooth Difficulty swallowing or breathing Clindamycin Hydrochloride Oral capsule What is this medicine? CLINDAMYCIN (CASI Julien) is a lincosamide antibiotic. It is used to treat certain kinds of bacterial infections. It will not work for colds, flu, or other viral infections. How should I use this medicine? Take this medicine by mouth with a full glass of water. Follow the directions on the prescription label. You can take this medicine with food or on an empty stomach. If the medicine upsets your stomach, take it with food. Take your medicine at regular intervals. Do not take your medicine more often than directed. Take all of your medicine as directed even if you think your are better. Do not skip doses or stop your medicine early. Talk to your e tailer regarding the use of this medicine in children. Special care may be needed. What side effects may I notice from receiving this medicine? Side effects that you should report to your doctor or health neonatal intensive care nurse as soon as possible: allergic reactions like skin rash, itching or hives, swelling of the face, lips, or tongue dark urine pain on swallowing redness, blistering, peeling or loosening of the skin, including inside the mouth unusual bleeding or bruising unusually weak or tired yellowing of eyes or skin Side effects that usually do not require medical attention (report to your doctor or health neonatal intensive care nurse if they continue or are bothersome): diarrhea itching in the rectal or genital area joint pain nausea, vomiting stomach pain What may interact with this medicine? chloramphenicol erythromycin kaolin products What if I miss a dose? If you miss a dose, take it as soon as you can. If it is almost time for your next dose, take only that dose. Do not take double or extra doses. Where should I keep my medicine? Keep out of the reach of children. Store at room temperature between 20 and 25 degrees C (68 and 77 degrees F). Throw away any unused medicine after the expiration date. What should I tell my health care provider before I take this medicine? They need to know if you have any of these conditions: kidney disease liver disease stomach problems like colitis an unusual or allergic reaction to clindamycin, lincomycin, or other medicines, foods, dyes like tartrazine or preservatives or trying to get breast-feeding What should I watch for while using this medicine? Tell your doctor or healthcare professional if your symptoms do not start to get better or if they get worse. Do not treat diarrhea with over the counter products. Contact your doctor if you have diarrhea that lasts more than 2 days or if it is severe and watery. You have been given the following additional information: Dental Pain Clindamycin Hydrochloride Oral capsule Do not work today (Here in ER Due to medical reasons on 03/01/2016, may have had medical concerns on 02/28 for which she may have missed work). (Electronically signed by Kim Figueroa P.A.-C 03/01/2016 13:44)
--- NOTE | 2016-03-01 19:10 | ED MAR SUMMARY ---
..... Medication Administration Record [facility] [address] [place] [address] Patient: SACHIN VAZQUEZ Visit ID: [id number] 31y, F Weight: 108.8 kg Height/Length: 65 in BMI: 40 ALLERGIES: Penicillin Given 13:33 03/01/2016 Janessa Trejo R.N. Medication Administered: CLINDAMYCIN [PO], Dose: 300 mg Tablets PO. Medication Ordered: Clindamycin PO 300 mg (NOW).
--- NOTE | 2016-03-01 19:10 | ED DISCHARGE INSTRUCTIONS ---
Patient: SACHIN VAZQUEZ General Instructions [facility] VisitID: [id number] [place] [address] 31y, F Registration Date/Time: 03/01/2016 Moderate dental pain. INSTRUCTIONS Do not work today (Here in ER Due to medical reasons on 03/01/2016, may have had medical concerns on 02/28 for which she may have missed work). Drink plenty of fluids. Prescription Medications: Cleocin 150 mg: take 1 capsule orally every 8 hours for 10 days. No refill. Substitution is permissible. Follow-up: Follow up with a specialist. ADDITIONAL INFORMATION Dental Pain A crack or cavity in the tooth, which exposes the sensitive inner area of the tooth can cause tooth pain. An infection in the gum or the root of the tooth can cause pain and swelling. The pain is often made worse by drinking hot or cold fluids, or biting on hard foods. Pain may spread from the tooth to the ear or jaw on the same side. Home Care: Avoid hot and cold foods and liquids since your tooth may be sensitive to temperature changes. If your tooth is chipped or cracked, or if there is a large open cavity, apply OIL OF CLOVES (available xtfa-era-xdljpbr in drug stores) directly to the tooth to reduce pain. Some pharmacies carry an qdbr-mbc-tugvgrc "toothache kit." This contains a paste, which can be applied over the exposed tooth to decrease sensitivity. A cold pack on your jaw over the sore area may help reduce pain. You may use acetaminophen (Tylenol) or ibuprofen (Motrin, Advil) to control pain, unless another medicine was prescribed. [ NOTE: If you have chronic liver or kidney disease or ever had a stomach ulcer or GI bleeding, talk with your doctor before using these medicines.] If you have signs of an infection, an antibiotic will be given. Take it as directed. Follow-Up as directed with a dentist. Your pain may go away with the treatment given. However, only a dentist can fully evaluate and treat the cause and prevent the pain from coming back again. TOOTHACHE IS A SIGN OF DISEASE IN YOUR TOOTH AND SHOULD BE EXAMINED AND TREATED BY A DENTIST. Get Prompt Medical Attention if any of the following occur: Your face becomes swollen or red Pain worsens or spreads to the neck Fever over 100.4 F (38.0 C) Unusual drowsiness; headache or stiff neck; weakness or fainting Pus drains from the tooth Difficulty swallowing or breathing Clindamycin Hydrochloride Oral capsule What is this medicine? CLINDAMYCIN (CASI Julien) is a lincosamide antibiotic. It is used to treat certain kinds of bacterial infections. It will not work for colds, flu, or other viral infections. How should I use this medicine? Take this medicine by mouth with a full glass of water. Follow the directions on the prescription label. You can take this medicine with food or on an empty stomach. If the medicine upsets your stomach, take it with food. Take your medicine at regular intervals. Do not take your medicine more often than directed. Take all of your medicine as directed even if you think your are better. Do not skip doses or stop your medicine early. Talk to your cloth bolt bander regarding the use of this medicine in children. Special care may be needed. What side effects may I notice from receiving this medicine? Side effects that you should report to your doctor or health child care aide as soon as possible: allergic reactions like skin rash, itching or hives, swelling of the face, lips, or tongue dark urine pain on swallowing redness, blistering, peeling or loosening of the skin, including inside the mouth unusual bleeding or bruising unusually weak or tired yellowing of eyes or skin Side effects that usually do not require medical attention (report to your doctor or health child care aide if they continue or are bothersome): diarrhea itching in the rectal or genital area joint pain nausea, vomiting stomach pain What may interact with this medicine? chloramphenicol erythromycin kaolin products What if I miss a dose? If you miss a dose, take it as soon as you can. If it is almost time for your next dose, take only that dose. Do not take double or extra doses. Where should I keep my medicine? Keep out of the reach of children. Store at room temperature between 20 and 25 degrees C (68 and 77 degrees F). Throw away any unused medicine after the expiration date. What should I tell my health care provider before I take this medicine? They need to know if you have any of these conditions: kidney disease liver disease stomach problems like colitis an unusual or allergic reaction to clindamycin, lincomycin, or other medicines, foods, dyes like tartrazine or preservatives or trying to get breast-feeding What should I watch for while using this medicine? Tell your doctor or healthcare professional if your symptoms do not start to get better or if they get worse. Do not treat diarrhea with over the counter products. Contact your doctor if you have diarrhea that lasts more than 2 days or if it is severe and watery. You have been given the following additional information: Dental Pain Clindamycin Hydrochloride Oral capsule Do not work today (Here in ER Due to medical reasons on 03/01/2016, may have had medical concerns on 02/28 for which she may have missed work). (Electronically signed by Kim Figueroa P.A.-C 03/01/2016 13:44)
--- NOTE | 2016-03-01 19:10 | ED MAR SUMMARY ---
..... Medication Administration Record [facility] [address] [place] [address] Patient: SACHIN VAZQUEZ Visit ID: [id number] 31y, F Weight: 108.8 kg Height/Length: 65 in BMI: 40 ALLERGIES: Penicillin Given 13:33 03/01/2016 Janessa Trejo R.N. Medication Administered: CLINDAMYCIN [PO], Dose: 300 mg Tablets PO. Medication Ordered: Clindamycin PO 300 mg (NOW).
--- NOTE | 2016-03-01 19:10 | ED MED RECONCILIATION SUMMARY ---
Patient: SACHIN VAZQUEZ Medication Reconciliation Report [facility] VisitID: [id number] [address] [place] [address] 31y, F Registration Date/Time: 03/01/2016 Weight: 108.8 kg Height/Length: 65 in. BMI: 40.0 ALLERGIES: Penicillin The patient's Home Medications are listed below: THE FOLLOWING MEDICATIONS NEED TO BE RECONCILED: Mirena Intrauterine The source(s) of the original Home Medication information: Not obtained. The following Medications were given to the patient in the Emergency Department: Clindamycin [PO] PO 300 mg, administered: 03/01/2016 1:33:00 PM The following Medications were prescribed to the patient: Cleocin 150 mg: take 1 capsule orally every 8 hours for 10 days. No refill. Substitution is permissible. -- Kim Figueroa P.A.-C
--- NOTE | 2016-03-01 19:10 | ED MED RECONCILIATION SUMMARY ---
Patient: SACHIN VAZQUEZ Medication Reconciliation Report [facility] VisitID: [id number] [address] [place] [address] 31y, F Registration Date/Time: 03/01/2016 Weight: 108.8 kg Height/Length: 65 in. BMI: 40.0 ALLERGIES: Penicillin The patient's Home Medications are listed below: THE FOLLOWING MEDICATIONS NEED TO BE RECONCILED: Mirena Intrauterine The source(s) of the original Home Medication information: Not obtained. The following Medications were given to the patient in the Emergency Department: Clindamycin [PO] PO 300 mg, administered: 03/01/2016 1:33:00 PM The following Medications were prescribed to the patient: Cleocin 150 mg: take 1 capsule orally every 8 hours for 10 days. No refill. Substitution is permissible. -- Kim Figueroa P.A.-C
== END 2016-03-01 13:30 | disposition home or self-care (01) ==
LOC: ED SRH 13:04
DX: K08.89 Other specified disorders of teeth and supporting structures (principal); K02.9 Dental caries, unspecified